=== PATIENT | female | born 1980 | race Caucasian/White ===

== ENCOUNTER 2024-08-15 22:38 | Emergency (ER) | payer OTHER ==
[~2024-08-15 22:38] MED LIST: LIDOCAINE PATCH REMOVAL MC SCH
[2024-08-15 22:59] VITALS: BP 115/71; PULSE 78; RESP 18; TEMP 98.8; BMI 28.8
[2024-08-15] MEDS ORDERED: ACETAMINOPHEN 325 MG TABLET (FP) ONE (23:18)
[2024-08-15] MEDS ORDERED: KETOROLAC TROMETHAMINE 30 MG/1 ML VIAL ONE (23:18)
[2024-08-15] MEDS ORDERED: LIDOCAINE 4% PATCH TP ONE (23:19)
[2024-08-15] MEDS: ACETAMINOPHEN 500 MG TABLET (FP) PO ONE (23:24)
[2024-08-15] MEDS: KETOROLAC TROMETHAMINE 30 MG/1 ML VIAL IM ONE (23:24)
[2024-08-15] MEDS: LIDOCAINE 4% PATCH TP ONE (23:24)
[2024-08-15] MEDS ORDERED: METHOCARBAMOL 500 MG TABLET ONE (23:25)
[2024-08-15] MEDS: METHOCARBAMOL 500 MG TABLET PO ONE (23:27)
== END 2024-08-16 00:11 | disposition home or self-care (01) ==
LOC: JER 22:38
PROC: 3E0233Z Introduction of Anti-inflammatory into Muscle, Percutaneous Approach (ICD-10-PCS; principal; 2024-08-15)
DX: M54.50 Low back pain, unspecified (principal)
CPT/HCPCS: 99284-25